=== PATIENT | male | born 1995 | race Two or more races ===

== ENCOUNTER 2018-08-30 20:57 | Emergency (ER) | payer MEDICAID ==
[~2018-08-30] VITALS: Ht 167.6 cm; Wt 49.8 kg
[2018-08-30 21:00] VITALS: BP 110/68
--- NOTE | 2018-08-30 21:14 | NUR ---
PT STATES THAT HE IS HAVING A HISTORY OF ASTHMA. PT WITH RECENT COUGH, SWEATS, AND HEADACHE. PT REPORTS DENTAL PAIN WELL. MONITORS APPLIED, SIDERAILS UP X2, CALL LIGHT WITHIN REACH
[2018-08-30] MEDS ORDERED: IBUPROFEN 600 MG TABLET ONE (21:23)
[2018-08-30] MEDS ORDERED: ACETAMINOPHEN 500 MG TABLET ONE (21:23)
--- NOTE | 2018-08-30 21:28 | NUR ---
PT MEDICATED PER MAR
[2018-08-30] MEDS ORDERED: IBUPROFEN 600 MG TABLET PO ONE (21:30)
[2018-08-30] MEDS ORDERED: ALBUTEROL/IPRATROPIUM 2.5MG/0.5MG, 3 ML NPPB ONE (21:30)
[2018-08-30] MEDS ORDERED: ACETAMINOPHEN 500 MG TABLET PO ONE (21:30)
== END 2018-08-30 22:10 | disposition home or self-care (01) ==
LOC: ED 21:50
DX: J45.21 Mild intermittent asthma with (acute) exacerbation (principal); K02.9 Dental caries, unspecified; Z87.891 Personal history of nicotine dependence
CPT/HCPCS: 71045; 93005; 94640; 94664; 99283; J7512; J7620; 99284